=== PATIENT | male | born 1985 | race Caucasian/White ===

== ENCOUNTER 2019-07-25 18:03 | Emergency (ER) | payer OTHER ==
[~2019-07-25] VITALS: Ht 172.7 cm; Wt 83.0 kg
== END 2019-07-25 19:44 | disposition home or self-care (01) ==
LOC: ER 18:03
DX: L29.8 Other pruritus (principal); L53.8 Other specified erythematous conditions; T78.1XXA Other adverse food reactions, not elsewhere classified, initial encounter; X58.XXXA Exposure to other specified factors, initial encounter